=== PATIENT | female | born 1960 | race Two or more races ===

== ENCOUNTER 2020-03-31 11:52 | Outpatient (CLI) | payer OTHER | END 2020-03-31 23:59 | disposition home or self-care (01) | LOC: LAB 11:52 | PROVIDERS: ATTEND Specialist | DX: Z01.812 Encounter for preprocedural laboratory examination (principal); Z20.828 Contact with and (suspected) exposure to other viral communicable diseases | CPT/HCPCS: 87426; C9803 ==

== ENCOUNTER 2020-04-05 06:05 | Day surgery (SDC) | payer OTHER ==
--- NOTE | 2020-04-05 07:59 | NUR ---
MS/RN NOTES RECEIVED PATIENT ON BED ALERT AND ORIENTED X4. DENIES PAIN AT THIS TIME. NO APPARENT RESPIRATORY DISTRESS NOTED. WILL CONTINUE TO MONITOR.
--- NOTE | 2020-04-05 08:55 | NUR ---
MS/RN NOTES PATIENT IS OUT IN THE UNIT PICK BY OR NURSE FOR DAY SURGERY. PATIENT IS IN STABLE CONDITION V/S BP 118/57 P 88 RR 18 T 98.0 SAO2 98%. PATIENT IN NO APPARENT RESPIRATORY DISTRESS NOTED. PATIENT IN ROOM AIR. PATIENT DENIES PAIN.
[2020-04-05] MEDS ORDERED: MIDAZOLAM HCL 2 MG/2ML VIAL ONE (10:16)
[2020-04-05] MEDS ORDERED: SCOPOLAMINE HBR 1 EA PATCH.TD72 TD ONE (10:16)
[2020-04-05] MEDS ORDERED: FENTANYL PF 100MCG/2ML AMPUL ONE ×2 (10:17→12:03)
[2020-04-05] MEDS ORDERED: EPINEPHRINE (1:1000) 1 MG/ML AMPUL ONE (10:21)
--- NOTE | 2020-04-05 13:05 | NUR ---
MS/RN NOTES PATIENT COMEBACK FROM SURGERY RECEIVED REPORT FROM [facility] TO REMOVE SHOULDER DRESSING AFTER 2 DAYS, PLEASE DO NOT REMOVE HAND DRESSING UNTIL FOLLOW UP, NORCO 1-2 TAB P.O. EVERY 6 HOUR PRN. V/S 139/80 P 89 T 98 RR 18. WILL CONTINUE TO MONITOR.
[2020-04-05] MEDS: HYDROCODONE/APAP 5/325MG TABLET PO PRN (15:41)
--- NOTE | 2020-04-05 16:20 | NUR ---
MS/RN NOTES 1320 - V/S BP 132/76 P 82 T 98.0 RR 18 SAO2 98% 1335 - BP - 138/78 P 88 T 98 RR 17 SAO2 98% 1350 BP 136/72 P 86 T 98.0 RR 18 SAO2 99% 1420 130/72 P 82 RR 18 T 98.1 SAO2 99% 1450 BP - 128/60 P 80 RR 18 T 98.3 SA02 98% 1600 BP 126/58 P 80 RR 18 T 98.3 SAO2 98%. PATIENT IS ALERT AND ORIENTED X4. PATIENT DENIES PAIN AT THIS TIME. IN ROOM AIR AND SATURATION IS AT 98%. RESPIRATION REGULAR AND UNLABORED. PATIENT IN NO APPARENT RESPIRATORY DISTRESS. SEEN AND EXAMINED BY MD WITH ORDERS MADE AND CARRIED OUT. PATIENT DISCHARGED AT 1605. PATIENT WAS GIVEN DISCHARGED INSTRUCTIONS AND PATIENT VERBALIZED UNDERSTANDING. THE PATIENT LEFT THE HOSPITAL IN STABLE CONDITION, DRESSING CLEAN, DRY AND INTACT. BUILDING CUSTODIAL SUPERVISOR BY FAMILY ON A PRIVATE CAR.
== END 2020-04-05 18:00 | disposition home or self-care (01) ==
LOC: DS 06:05 → UNDOADMIN 06:07 → MED 06:07 → UNDODISIN 16:00 → DS 18:00
PROVIDERS: ATTEND Specialist
DX: M75.41 Impingement syndrome of right shoulder (principal); G56.01 Carpal tunnel syndrome, right upper limb; M65.811 Other synovitis and tenosynovitis, right shoulder
CPT/HCPCS: 29826; 29827; 36415; 64721; 86850; 87081; A4217; A4565; A6402; C1713; J0171; J2250; J3010 ×2; G0378